=== PATIENT | female | born 1995 | race Two or more races ===

== ENCOUNTER 2016-12-07 00:56 | Emergency (ER) | payer BC, OTHER ==
--- NOTE | 2016-12-07 01:11 | PDOC ---
History of Present Illness - General Stated Complaint: pain on right side Time Seen by Provider: 12/07/16 01:11 History Source: Patient Exam Limitations: No Limitations - History of Present Illness Initial Comments: 12/07/16 01:16 This is a 21-year-old female who comes in complaining of feeling weird on the whole right side of her body and some numbness and tingling in her hands. Patient said that the feeling weird on the right side of her body isn't numbness or tingling. She said it isn't weakness and it isn't pain. Patient is concerned because she said she takes metformin for polycystic ovary disease and said she was drinking some alcohol a couple of days ago and now is concerned that she may have lactic acidosis. Patient denies any abdominal pain myalgias or arthralgias, has fatigue,and headache. Patient otherwise is healthy. Denies any chest pain but is complaining of some sensation that she feels short of breath. Denies any cough, fever, chills, abdominal pain, nausea, vomiting, diarrhea. PAST MEDICAL HISTORY: Polycystic ovaries PAST SURGICAL HISTORY: no significant history FAMILY HISTORY: no pertinant history SOCIAL HISTORY: Pt lives with family MEDICATIONS: reviewed ALLERGIES: As per nursing notes Review of Systems General: No fevers or chills, no weakness, no weight loss + fatigue HEENT: No change in vision. No sore throat,. No ear pain CardioVascular: No chest pain or shortness of breath as per history of present illness Respiratory:No cough, or wheezing. Shortness of breath as per history of present illness Gastrointestinal: no nausea, vomitting, diarrhea or constipation, No rectal bleeding Genitourinary: No dysuria, hematuria, or frequency Musculoskeletal: No joint or muscle pain or swelling Neurologic: No headache, vertigo, dizziness or loss of consciousness Psychiatric: nor depression , anxiety Skin: No rashes or easy bruising Endocrine: no increased thirst or abnormal weight change Allergic: no skin or latex allergy All other systems reviewed and normal Exam: General: Well-nourished well-developed individual, no acute distress HEENT: Throat: Normal, tonsils normal, no erythema or exudate Neck: Supple, no meningeal signs, no lymphadenopathy Eyes::Pupils equal reactive and round, extraocular motion intact Chest: Nontender to palpation Cardiac: S1-S2 normal, regular rate and rhythm, no murmurs rubs or gallops Respiratory: Lungs clear to auscultation bilateral Abdomen: Soft, nondistended, normal bowel sounds, nontender to palpation diffusely Extremities: Warm, dry, no cyanosis, clubbing, or edema Skin: No rashes Neuro: Alert and oriented x3, nonfocal exam, grossly intact, normal gait Psych: Normal mood and affect 12/07/16 02:43 assessment and plan: This is a 21-year-old female who takes metformin for polycystic ovary disease patient came in saying that she was concerned that she may have lactic acidosis because she is was drinking heavily and was fatigued and some unusual/weird sensations in the right side of her body. Patient had a workup which revealed a very mildly elevated white count which could be consistent with a viral illness and otherwise was completely normal. Patient was given a liter of fluid and felt better. Patient discharged home will follow- up with her primary care doctor. Past History - Past Medical History Allergies/Adverse Reactions: Allergies Allergy/AdvReac Type Severity Reaction Status Date / Time No Known Allergies Allergy Verified 12/07/16 01:02 Home Medications: Ambulatory Orders Metformin HCl [Glucophage] 1,000 mg PO BID 12/07/16 ED Treatment Course - LABORATORY CBC & Chemistry Diagram: 12/07/16 01:45 12/07/16 01:45 *DC/Admit/Observation/Transfer Diagnosis at time of Disposition: Viral infection - Discharge Dispostion Disposition: HOME Admit: No - Patient Instructions Additional Instructions: Stay well hydrated. Restart your metformin Take Naprosyn 2 tablets twice a day as needed for the headache. Return to the emergency department immediately with ANY new, persistent or worsening symptoms. Continue any medications as previously prescribed by your physician. You should follow up with your primary doctor as soon as possible regarding today's emergency department visit. . Please make sure your doctor reviews the results of your emergency evaluation. Thank you for coming to the Emergency Department today for your care. It was a pleasure to see you today. Please note that your evaluation is INCOMPLETE until you follow-up with your doctor.
[2016-12-07 01:14] VITALS: TEMP 98.6; BMI 28.3
[2016-12-07] MEDS ORDERED: SODIUM CHLORIDE 1,000 ML IV ONE (01:43)
[2016-12-07] MEDS ORDERED: KETOROLAC TROMETHAMINE 30 MG/1 ML VIAL IVPUSH ONE (01:50)
[2016-12-07 02:05] LABS: BASOPHIL 0.5 % (0-2.0); EOSINOPHIL 2.2 % (0-4.5); MCH 25.7 pg (25.7-33.7); MEAN CELL VOLUME 80.1 fl (80-96); MEAN PLT VOLUME 9.2 fl (7.5-11.1); NEUTROPHILS 45.4 % (42.8-82.8); PLATELET COUNT 350 K/MM3 (134-434); RDW 15.6 % (11.6-15.6); WHITE BLOOD COUNT 11.2 K/mm3 (4.0-10.0)
[2016-12-07 02:28] LABS: ALBUMIN 4.3 g/dl (3.4-5.0); ANION GAP 7 (8-16); BILIRUBIN,TOTAL 0.4 mg/dL (0.2-1.0); CALCIUM 9.1 mg/dL (8.5-10.1); CO2 29 mmol/L (21-32); CREATININE 0.8 mg/dL (0.55-1.02); GLUCOSE,RANDOM 78 mg/dL (74-106); SGOT/AST 20 U/L (15-37); SGPT/ALT 30 U/L (12-78); TOT PROT 7.8 g/dl (6.4-8.2)
[2016-12-07 02:29] LABS: ALK PHOS 108 U/L (45-117)
[2016-12-07 03:10] VITALS: BP 110/70; PULSE 68
== END 2016-12-07 03:10 | disposition home or self-care (01) ==
LOC: FER 00:56
PROC: 3E0337Z Introduction of Electrolytic and Water Balance Substance into Peripheral Vein, Percutaneous Approach (ICD-10-PCS; principal; 2016-12-07)
DX: B34.9 Viral infection, unspecified (principal)
CPT/HCPCS: 36415; 80053; 83605; 85025; 99281-25